=== PATIENT | female | born 1985 | race Caucasian/White ===

== ENCOUNTER 2021-05-27 05:21 | Inpatient (IN) | payer OTHER ==
[~2021-05-27 05:21] MED LIST: BENADRYL 25MG C25 MG PO; FERROUS SULFAT325 M2 PO; LODINE CAP 300300 MG PO; MACROBID 100 M100 MG PO; PRENATAL VITAM1 EAC8 PO; ZOFRAN ODT 4 MG4 MG SL
[2021-05-27 06:22] LABS: HEMOGLOBIN 9.8 gm/dl (12.3-15.3); RED BLOOD COUNT 3.31 M/UL (4.00-5.10); WHITE BLOOD COUNT 9.3 K/UL (4.5-11.0)
[2021-05-27] MEDS ORDERED: HYDROCODONE-AC1 EAC1 PO (08:10)
[2021-05-27] MEDS ORDERED: FERROUS SULFAT325 M2 PO (08:10)
[2021-05-27] MEDS ORDERED: IBUPROFEN800 MG PO (08:10)
[2021-05-27] MEDS ORDERED: DOCUSATE SODIU100 MG PO (08:10)
[2021-05-28 05:10] LABS: HEMOGLOBIN 9.8 gm/dl (12.3-15.3)
== END 2021-05-28 16:44 | disposition home or self-care (01) | DRG 788 ==
LOC: OB 05:21
PROVIDERS: ADMIT Obstetrics & Gynecology
PROC: 4A1HXCZ Monitoring of Products of Conception, Cardiac Rate, External Approach (ICD-10-PCS; 2021-05-27)
PROC: 10D00Z1 Extraction of Products of Conception, Low, Open Approach (ICD-10-PCS; principal; 2021-05-27 07:30)
DX: O34.211 Maternal care for low transverse scar from previous cesarean delivery (principal); Z3A.39 39 weeks gestation of pregnancy; Z37.0 Single live birth; O99.02 Anemia complicating childbirth; E66.01 Morbid (severe) obesity due to excess calories; Z20.822 Contact with and (suspected) exposure to COVID-19; O99.214 Obesity complicating childbirth; Z90.49 Acquired absence of other specified parts of digestive tract; Z90.5 Acquired absence of kidney; Z88.2 Allergy status to sulfonamides; Z87.440 Personal history of urinary (tract) infections; Z81.8 Family history of other mental and behavioral disorders
CPT/HCPCS: 36415; 81001; 82800; 85014; 85018; 85025; 85461; 86850; 86900; 86901; C9113; J0690; J2274; J2370; J2405; J2590; J2790; J3010; J7120

== ENCOUNTER 2022-03-12 12:15 | Emergency (ER) | payer OTHER ==
[~2022-03-12 12:15] MED LIST changes: +DOCUSATE SODIU100 MG PO; +HYDROCODONE-AC1 EAC1 PO; +IBUPROFEN800 MG PO
[2022-03-12 12:35] LABS: HEMOGLOBIN 11.6 gm/dl (12.3-15.3); RED BLOOD COUNT 4.15 M/UL (4.00-5.10); WHITE BLOOD COUNT 7.8 K/UL (4.5-11.0)
[2022-03-12 12:56] LABS: BUN/CREATININE RATIO 18 (0-10)
[2022-03-12] MEDS ORDERED: PERCOCET 5/325 T1 EA PO (16:56)
[2022-03-12] MEDS ORDERED: US of Gallbladder (16:56)
== END 2022-03-12 17:11 | disposition home or self-care (01) ==
LOC: ER1 12:15
PROVIDERS: Emergency Medicine
DX: R10.11 Right upper quadrant pain (principal); K82.8 Other specified diseases of gallbladder; R10.811 Right upper quadrant abdominal tenderness; R11.2 Nausea with vomiting, unspecified; Z90.5 Acquired absence of kidney; Z90.89 Acquired absence of other organs
CPT/HCPCS: 80053; 81001; 83690; 84703; 85025; 96374; 96375; 99284; C9113; J2270; J2405; Q9967

== ENCOUNTER → 2022-03-13 | Outpatient (CLI) | payer OTHER ==
[~2022-03-13] MED LIST changes: +PERCOCET 5/325 T1 EA PO; +US of Gallbladder
== END ==
LOC: US 10:49
DX: R10.11 Right upper quadrant pain (principal); K76.0 Fatty (change of) liver, not elsewhere classified; K80.20 Calculus of gallbladder without cholecystitis without obstruction
CPT/HCPCS: 76705